=== PATIENT | female | born 2000 | race Caucasian/White ===

== ENCOUNTER 2019-07-15 15:00 | Emergency (ER) | payer OTHER ==
[~2019-07-15] VITALS: Ht 160 cm; Wt 59.0 kg
[2019-07-15 15:39] VITALS: BP 116/71
== END 2019-07-15 17:28 | disposition left against medical advice (07) ==
LOC: ER 15:00
DX: R06.02 Shortness of breath (principal); R05 Cough; Z53.21 Procedure and treatment not carried out due to patient leaving prior to being seen by health care provider